=== PATIENT | female | born 1965 | race Caucasian/White ===

== ENCOUNTER → 2020-05-04 | Outpatient (CLI) | payer OTHER | LOC: MC.RAD 08:03 | DX: Z12.31 Encounter for screening mammogram for malignant neoplasm of breast (principal) ==

== ENCOUNTER → 2020-05-19 | Outpatient (CLI) | payer OTHER | LOC: MC.RAD 13:32 | DX: R92.2 Inconclusive mammogram (principal) ==

== ENCOUNTER → 2020-10-28 | Outpatient (CLI) | payer OTHER | LOC: COL.RAD 07:56 | DX: G56.01 Carpal tunnel syndrome, right upper limb (principal); G62.89 Other specified polyneuropathies; M50.21 Other cervical disc displacement, high cervical region; M48.02 Spinal stenosis, cervical region; M51.36 Other intervertebral disc degeneration, lumbar region; M51.26 Other intervertebral disc displacement, lumbar region; M47.816 Spondylosis without myelopathy or radiculopathy, lumbar region; M48.061 Spinal stenosis, lumbar region without neurogenic claudication; M47.817 Spondylosis without myelopathy or radiculopathy, lumbosacral region ==

== ENCOUNTER → 2020-11-05 | Outpatient (CLI) | payer OTHER | LOC: MC.RAD 09:43 | DX: R92.0 Mammographic microcalcification found on diagnostic imaging of breast (principal) ==

== ENCOUNTER 2021-05-20 15:15 | Outpatient (RCR) | payer OTHER | END 2021-05-24 | disposition still patient (30) | LOC: MKS.ESL.OT | DX: R20.2 Paresthesia of skin (principal) ==

== ENCOUNTER → 2021-06-02 | Outpatient (CLI) | payer OTHER | LOC: MKS.ESL.OT 04-28 14:30 → MC.RAD 09:30 → MKS.ESL.OT 09:30 | DX: Z12.31 Encounter for screening mammogram for malignant neoplasm of breast (principal) ==

== ENCOUNTER 2021-06-22 13:00 | Outpatient (RCR) | payer OTHER | END 2021-06-24 | disposition home or self-care (01) | LOC: MKS.ESL.OT | DX: R20.2 Paresthesia of skin (principal) ==

== ENCOUNTER 2021-07-14 15:30 | Outpatient (RCR) | payer OTHER | END 2021-07-24 | disposition home or self-care (01) | LOC: MKS.ESL.OT | DX: R20.2 Paresthesia of skin (principal) ==

== ENCOUNTER → 2021-11-24 | Outpatient (RCR) | payer OTHER | LOC: WSPT | DX: M17.0 Bilateral primary osteoarthritis of knee (principal) ==

== ENCOUNTER → 2022-01-24 | Outpatient (RCR) | payer OTHER | END | disposition home or self-care (01) | LOC: WSPT | DX: M17.0 Bilateral primary osteoarthritis of knee (principal) ==

== ENCOUNTER 2022-06-16 21:45 | Emergency (ER) | payer OTHER ==
[~2022-06-16] VITALS: Ht 182.9 cm; Wt 107.3 kg
[2022-06-16 21:49] VITALS: BP 154/112
[2022-06-16 22:23] LABS: BASO % 0.4 % (0.0-2.0); EOS # 0.3 K/mm3 (0.0-0.7); EOS % 2.5 % (0.0-4.0); GRAN # 6.3 K/mm3 (1.4-6.5); GRAN % 62.9 % (42.2-75.2); HEMATOCRIT 43.7 % (37.0-47.0); HEMOGLOBIN 15.3 g/dl (12.5-16.0); LYMPH # 2.4 K/mm3 (1.2-3.4); LYMPH % 24.5 % (20.0-51.0); MEAN CELL VOLUME 83 fl (80.0-100.0); MEAN CORPUSCULAR HEMOGLOBIN 29 pg (27-31); MEAN CORPUSCULAR HGB CONC 35 g/dl (33.0-37.0); MEAN PLATELET VOLUME 10.1 fl (7.4-10.4); MONO # 0.9 K/mm3 (0.1-0.6); MONO % 9.3 % (1.7-9.3); PLATELET COUNT 227 K/mm3 (130-400); RED BLOOD COUNT 5.28 M/mm3 (4.10-5.30); REDCELL DISTRIBUTION WIDTH-CV 13.4 % (11.5-14.5)
[2022-06-16 22:39] LABS: BILIRUBIN,TOTAL 0.7 mg/dL (0.2-1.2); CALCIUM 8.9 mg/dL (8.4-10.2); CREATININE, serum 0.71 mg/dL (0.57-1.11); TOTAL PROTEIN 7.2 gm/dL (6.2-8.1)
[2022-06-16 22:40] LABS: POTASSIUM 2.8 mmol/L (3.5-4.5)
[2022-06-16 23:48] VITALS: PULSE 76
== END 2022-06-16 23:48 | disposition home or self-care (01) ==
LOC: COL.ER 21:45
PROVIDERS: Nurse Practitioner
DX: E87.6 Hypokalemia (principal); Z28.310 Unvaccinated for COVID-19

== ENCOUNTER → 2022-08-05 | Outpatient (CLI) | payer OTHER | LOC: MC.RAD 07-06 07:00 | DX: Z12.31 Encounter for screening mammogram for malignant neoplasm of breast (principal) ==

== ENCOUNTER 2023-02-23 22:21 | Emergency (ER) | payer OTHER ==
[~2023-02-23] VITALS: Ht 182.9 cm; Wt 107.7 kg
[2023-02-23 22:36] VITALS: TEMP 98.3
[2023-02-23 23:58] LABS: BASO % 0.5 % (0.0-2.0); EOS # 0.5 K/mm3 (0.0-0.7); EOS % 8.5 % (0.0-4.0); GRAN # 3.2 K/mm3 (1.4-6.5); GRAN % 56.2 % (42.2-75.2); HEMATOCRIT 39.5 % (37.0-47.0); HEMOGLOBIN 13.1 g/dl (12.5-16.0); LYMPH # 1.3 K/mm3 (1.2-3.4); LYMPH % 22.8 % (20.0-51.0); MEAN CELL VOLUME 90 fl (80.0-100.0); MEAN CORPUSCULAR HEMOGLOBIN 30 pg (27-31); MEAN CORPUSCULAR HGB CONC 33 g/dl (33.0-37.0); MONO # 0.7 K/mm3 (0.1-0.6); MONO % 11.6 % (1.7-9.3); PLATELET COUNT 188 K/mm3 (130-400); REDCELL DISTRIBUTION WIDTH-CV 14.4 % (11.5-14.5)
[2023-02-24 00:22] LABS: ALBUMIN 3.4 gm/dL (3.5-5.0); BILIRUBIN,TOTAL 0.4 mg/dL (0.2-1.2); C-REACTIVE PROTEIN 0.42 mg/dL (0.00-0.50); CALCIUM 8.7 mg/dL (8.4-10.2); CREATININE, serum 0.67 mg/dL (0.57-1.11); TOTAL PROTEIN 6.5 gm/dL (6.2-8.1)
[2023-02-24 02:54] VITALS: BP 105/60; PULSE 72
== END 2023-02-24 02:54 | disposition home or self-care (01) ==
LOC: COL.ER 22:21
PROVIDERS: Nurse Practitioner
DX: J06.9 Acute upper respiratory infection, unspecified (principal); L85.3 Xerosis cutis; Z28.310 Unvaccinated for COVID-19

== ENCOUNTER → 2023-08-08 | Outpatient (CLI) | payer OTHER | LOC: MC.RAD 08:38 | DX: Z12.31 Encounter for screening mammogram for malignant neoplasm of breast (principal) ==

== ENCOUNTER 2023-11-21 16:59 | Emergency (ER) | payer OTHER ==
[~2023-11-21] VITALS: Ht 182.9 cm; Wt 118.0 kg
[2023-11-21 17:02] VITALS: TEMP 98.3
[2023-11-21 18:43] LABS: BASO % 0.3 % (0.0-2.0); EOS # 0.2 K/mm3 (0.0-0.7); EOS % 2.3 % (0.0-4.0); GRAN # 4.8 K/mm3 (1.4-6.5); GRAN % 69.1 % (42.2-75.2); HEMATOCRIT 44.5 % (37.0-47.0); HEMOGLOBIN 14.7 g/dl (12.5-16.0); LYMPH # 1.4 K/mm3 (1.2-3.4); LYMPH % 20.2 % (20.0-51.0); MEAN CELL VOLUME 89 fl (80.0-100.0); MEAN CORPUSCULAR HEMOGLOBIN 29 pg (27-31); MEAN CORPUSCULAR HGB CONC 33 g/dl (33.0-37.0); MEAN PLATELET VOLUME 10.5 fl (7.4-10.4); MONO # 0.5 K/mm3 (0.1-0.6); MONO % 7.7 % (1.7-9.3); PLATELET COUNT 184 K/mm3 (130-400); REDCELL DISTRIBUTION WIDTH-CV 13.2 % (11.5-14.5)
[2023-11-21] MEDS ORDERED: Phytonadione 10 MG in NS 50 ML IV ONE (18:45)
[2023-11-21 18:51] LABS: ERYTHROCYTE SEDIMENTATION RATE 10 mm/hr (0-30)
[2023-11-21 19:04] LABS: ALBUMIN 3.6 g/dL (3.5-5.0); BILIRUBIN,TOTAL 0.6 mg/dL (0.2-1.2); C-REACTIVE PROTEIN 1.18 mg/dL (0.00-0.50); CREATININE, serum 0.71 mg/dL (0.57-1.11); TOTAL PROTEIN 6.7 g/dl (6.2-8.1)
[2023-11-21] MEDS ORDERED: Cephalexin 500 MG CAP PO ONE (20:15)
[2023-11-21] MEDS ORDERED: CEPHALEXIN500 M1 PO (20:20)
[2023-11-21 20:44] VITALS: BP 182/98; PULSE 66
== END 2023-11-21 21:09 | disposition home or self-care (01) ==
LOC: COL.ER 16:59
PROVIDERS: Emergency Medicine
DX: G89.18 Other acute postprocedural pain (principal); M54.2 Cervicalgia; L08.9 Local infection of the skin and subcutaneous tissue, unspecified